=== PATIENT | female | born 1985 | race Two or more races ===

== ENCOUNTER 2016-11-24 17:50 | Inpatient (IN) | payer OTHER ==
[2016-11-24] MEDS: ELECTROLYTE-148 SOLN 1,000 ML IV SCH ×2 (18:35→23:40)
[2016-11-24 18:43] VITALS: BMI 25.5
[2016-11-24] MEDS ORDERED: TUBERCULIN PPD 5 TU/0.1ML SYRINGE (IN PATIENT USE ONLY) ID ONE (19:15)
[2016-11-24 19:46] LABS: BASOPHIL 0.2 % (0-2.0); EOSINOPHIL 0.4 % (0-4.5); MCH 29.3 pg (25.7-33.7); MCHC 34.4 g/dl (32.0-36.0); MEAN CELL VOLUME 85.3 fl (80-96); MEAN PLT VOLUME 7.9 fl (7.5-11.1); NEUTROPHILS 76.9 % (42.8-82.8); PLATELET COUNT 322 K/MM3 (134-434); WHITE BLOOD COUNT 9.9 K/mm3 (4.0-10.0)
[2016-11-24 19:56] LABS: INR 1.01 (0.82-1.09); PROTHROMBIN TIME (PATIENT) 11.4 SEC (9.98-11.88)
[2016-11-24 19:59] LABS: ACTIVATED PTT 27.4 SECONDS (26.9-34.4)
[2016-11-24 20:08] LABS: ANION GAP 9 (8-16); CALCIUM 7.8 mg/dL (8.5-10.1); CO2 23 mmol/L (21-32); CREATININE 0.6 mg/dL (0.55-1.02); GLUCOSE,RANDOM 84 mg/dL (74-106)
[2016-11-24 20:27] LABS: HIV 1 & 2 AB NEGATIVE; HIV 1 AGp24 NEGATIVE
[2016-11-24] MEDS ORDERED: OXYTOCIN 15 UNITS/ LR 250 ML 250 ML IVPB SCH ×2 (21:30)
[2016-11-24] MEDS ORDERED: DEXTROSE 5%-LACTATED RINGERS 1,000 ML IV SCH (21:30)
--- NOTE | 2016-11-24 21:30 | HP ---
Past Medical History - Primary Care Physician PCP:: Sherwin Warner - Admission Chief Complaint: 31yo P1 with at EGA 39w2d wks admitted with PROM History of Present Illness: Leaking amniotic fluid since 5:30pm. Occasional very mild ctx's. 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: Alzheimer's, CVA, Dementia, Migraine, Multiple Sclerosis, Peripheral Neuropathy, Parkinson's, Seizure, Syncope, TIA, Vertigo, Other Cardiovascular: No: AFIB, Aneurysm, Aortic Insufficiency, Aortic Stenosis, CAD, CHF, Deep Vein Thrombosis, HTN, Hyperlipdemia, MD, Mitral Insufficiency, Mitral Stenosis, Murmur, Pulmonary Hypertension, Other Pulmonary: No: Asthma, Bronchitis, Cancer, COPD, O2 Dependent, Pneumonia, Previously Intubated, Pulmonary Embolus, Pulmonary Fibrosis, Sleep Apnea, Other Gastrointestinal: No: Ascites, Cancer, Constipation, Crohn's Disease, Diverticulitis, Diverticulosis, Esophageal Varices, Gastritis, GERD, GI Bleed, Hemorrhoids, Hiatal Hernia, Inflamatory Bowel Disease, Irritable Bowel Disease, Pancreatitis, Peptic Ulcer Disease, Ulcerative Colitis, Other Hepatobiliary: No: Cirrhosis, Cholelithiasis, Cholecystitis, Choledocholithiasis , Hepatitis A, Hepatitis B, Hepatitis C, Other Renal/: No: Renal Failure, Renal Inusuff, BPH, Cancer, Hematuria, Hemodialysis , Neurogenic Bladder, Renal Calculi, UTI, Other ...: 2 ...Para: 1 (VAVD, vaginal/perineal lacerations, difficult delivery, as per pt and ) ...Term: 1 ...: 0 ...Spon : 0 ...Induced : 0 ...Multiple Gestation: 0 ...LMP: 02/23/16 ... Weeks Gestation by Dates: 39.2 ...EDC by Dates: 11/29/16 ...EDC by Sono: 11/29/16 Heme/Onc: Yes: Anemia Infectious Disease: No: AIDS, C-Diff, Herpes Zoster, HIV, MRSA, STD's, Tuberculosis, VREF, Other Psych: No: Addictions, Anxiety, Bipolar, Depression, Panic, Psychosis, Schizophrenia, Other Musculoskeletal: No: Bursitis, Chronic low back pain, Hemiparesis, Hemiplegia, Osteoarthritis, Paraplegia, Other Rheumatology: No: Fibromyalgia, Gout, Lupus, Rheumatoid Arthritis, Sarcoidosis, Vasculitis, Other ENT: No: Allergic Rhinitis, Sinusitis, Other Endocrine: No: Pine's Disease, Andrea's Disease, Diabetes Insipidus, Diabetes Mellitus, Hyperparathyroidism, Hyperthyroidism, Hypothyroidism, Osteopenia, SIADH, Other Dermatology: No: Basal Cell, Cellulitis, Eczema, Melanoma, Psoriasis, Squamous Cell, Other - Past Surgical History Past Surgical History: Yes: None Hx Myomectomy: No Hx Transabdominal Cerclage: No - Smoking History Smoking history: Never smoked Have you smoked in the past 12 months: No - Alcohol/Substance Use Hx Alcohol Use: No History of Substance Use: reports: None - Social History Usual Living Arrangement: Yes: With Spouse, With Child ADL: Independent History of Recent Travel: No Home Medications - Allergies Allergies/Adverse Reactions: Allergies Allergy/AdvReac Type Severity Reaction Status Date / Time No Known Allergies Allergy Verified 11/24/16 18:52 - Home Medications Home Medications: Ambulatory Orders Vit/Iron Fumarate/FA [ Tablet] 1 tab PO DAILY 11/24/16 Family Disease History - Family Disease History Family Disease History: Heart Disease: Father, CA: Mother, Respiratory: Father Review of Systems - Review of Systems Constitutional: reports: No Symptoms Eyes: reports: No Symptoms HENT: reports: No Symptoms Neck: reports: No Symptoms Cardiovascular: reports: No Symptoms Respiratory: reports: No Symptoms Gastrointestinal: reports: No Symptoms Genitourinary: reports: Other (leaking clear fluid) Breasts: reports: No Symptoms Reported Musculoskeletal: reports: No Symptoms Integumentary: reports: No Symptoms Neurological: reports: No Symptoms Endocrine: reports: No Symptoms Hematology/Lymphatic: reports: No Symptoms Psychiatric: reports: No Symptoms Pain Intensity: 0 Physical Exam - Maternity Vital Signs: Vital Signs Temperature 98.3 F 11/24/16 21:00 Pulse Rate 84 11/24/16 21:00 Respiratory Rate 20 11/24/16 21:00 Blood Pressure 96/46 11/24/16 21:00 O2 Sat by Pulse Oximetry (%) Constitutional: Yes: Well Nourished, No Distress, Calm Eyes: Yes: WNL, Conjunctiva Clear HENT: Yes: WNL, Atraumatic, Normocephalic Neck: Yes: WNL, Supple, Trachea Midline Cardiovascular: Yes: WNL, Regular Rate and Rhythm Lungs: Clear to auscultation, Normal air movement Breast(s): Yes: WNL - Abdominal Exam/OB Fundal Height: 38 Number of Fetuses: Single Presentation: Vertex Contractions: Yes Regularity: Irritability Intensity: Unaware Monitor Mode: External Heart Rate (range): 140 Heart Rate Location: Midline Accelerations: Uniform Decelerations: None - Vaginal Exam/OB Vaginal Bleediing: No Speculum Exam: No Dilatation (cm): 1 Effacement (%): 20 Amniotic Membrane Status: Leaking Nitrazine Test: Positive Amniotic Fluid: Yes: Clear Presentation: Vertex/Position Station: -3 - Physical Exam Musculoskeletal: Yes: WNL Extremities: Yes: WNL Edema: No Integumentary: Yes: WNL Deep Tendon Reflex Grade: Normal +2 ...Motor Strength: WNL Psychiatric: Yes: WNL, Alert, Oriented - Labs Lab Results: CBC, BMP 11/24/16 19:10 11/24/16 19:10 Hemorrhage Risk Assessment - Risk Factors Medium Risk Factors: Yes: None High Risk Factors: Yes: None Risk Score: 1 Risk Level: Medium Risk Imaging - Results Ultrasound: Report Reviewed Assessment/Plan 31yo P1 with at EGA 39w2d wks admitted with PROM. Fetus with Category I tracing. We had land discussion re: risks, benefits, and alternatives of labor induction. I explained the options of expectant management awaiting spontaneous labor, induction of labor, and elective section. The risks of uterine tachysystole, distress, uterine rupture, need for emergency C/S , hemorrhage, infection, scarring, etc. were discussed. We also discussed the risks of meconium aspiration, shoulder dystocia, and anesthesia options. The pt prefers to proceed with labor indx. She declined Cervidil for cervical ripening and prefers pitocin becaue it potentially requires fewer vaginal exams w/o anesthesia.
[2016-11-24] MEDS ORDERED: BUTORPHANOL TARTRATE 1 MG/ML VIAL IVPB ONE (22:15)
[2016-11-24] MEDS ORDERED: PROMETHAZINE HCL 25 MG/1 ML VIAL IVPB ONE (22:15)
[2016-11-25] MEDS ORDERED: FENTANYL/BUPIVACAINE/NS/PF - PCEA - 50 ML DISP.SYRIN EP SCH (00:30)
[2016-11-25 04:44] LABS: ARTERIAL BLD GAS O2 SATURATION 47.1 % (90-98.9); ARTERIAL BLOOD GAS BASE EXCESS -4.5 meq/l (-2-2); ARTERIAL BLOOD GAS HCO3 21.2 meq/L (22-26); ARTERIAL BLOOD GAS PO2 23.2 mmHg (80-100); ARTERIAL BLOOD GAS pH 7.31 (7.35-7.45)
[2016-11-25 04:46] LABS: VENOUS PH 7.35 (7.32-7.42)
[2016-11-25 04:47] LABS: VENOUS BLOOD GAS HCO3 20.4 meq/L (19-25)
[2016-11-25] MEDS ORDERED: ACETAMINOPHEN 325 MG TABLET (FP) PO PRN (08:27)
[2016-11-25] MEDS ORDERED: METHYLERGONOVINE MALEATE 0.2 MG/1 ML AMP IM PRN (08:27)
[2016-11-25] MEDS ORDERED: BENZOCAINE 28 GM HEMORRHOIDAL OINTMENT TP PRN (08:27)
[2016-11-25] MEDS ORDERED: WITCH HAZEL 50% (TUCKS) 40 PAD/JAR PAD TP PRN (08:27)
[2016-11-25] MEDS ORDERED: IBUPROFEN 600 MG TABLET (FP) PO PRN (08:27)
[2016-11-25] MEDS ORDERED: oxyCODONE HCL 5 MG TABLET PO PRN (08:27)
[2016-11-25] MEDS ORDERED: BENZOCAINE 20% 57 GM BOTTLE TP PRN (08:27)
[2016-11-25] MEDS ORDERED: BISACODYL 10 MG SUPP.RECT RC PRN (08:27)
--- NOTE | 2016-11-25 08:27 | PN ---
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 The internal anal sphincter was identified and closed with continuous 2-0 Vicryl sutures. Allis clamps were placed on each end of the external anal sphincter. The external anal sphincter was repaired with overlapping technique using 2-0 Vicryl sutire. The vaginal mucosa was repaired including rectovaginal fascia using 2-0 chromic suture. The perineal skin was closed. Rectal exam was then again performed after repair and good rectal tone was noted.
[2016-11-25] MEDS ORDERED: D5W-LR W/ 20 UNITS OXYTOCIN 1,000 ML IV SCH (08:30)
[2016-11-25] MEDS: DOCUSATE SODIUM 100 MG CAPSULE (FP) PO PRN ×2 (10:07→21:52)
[2016-11-25] MEDS: CEFAZOLIN 1 GM in DEXTROSE 5%-WATER - 50 ML IVPB SCH ×2 (11:13→19:10)
[2016-11-25] MEDS ORDERED: OXYTOCIN 20 UNITS in 0.9% NS 1,000 ML IV SCH (11:30)
[2016-11-26] MEDS: CEFAZOLIN 1 GM in DEXTROSE 5%-WATER - 50 ML IVPB SCH (01:32)
--- NOTE | 2016-11-26 07:04 | PN ---
Post Progress Note - Subjective Subjective: Patient without acute complaints. Reports tolerating oral intake without nausea or vomiting. Ambulating without dizziness. Denies fevers or chills. Pain well controlled with oral pain medication. without difficulty. Passing flatus. Post Day: 1 Type of Delivery: Vital Signs: Vital Signs Temperature 97.7 F 11/26/16 05:24 Pulse Rate 88 11/26/16 05:24 Respiratory Rate 20 11/26/16 05:24 Blood Pressure 108/69 11/26/16 05:24 O2 Sat by Pulse Oximetry (%) 100 11/25/16 05:35 Uterus: Yes: Fundus Firm, Fundus below umbilicus Abdomen/GI: Yes: Abdomen soft, Passing flatus, Tolerating PO. No: Tender Lochia: Yes: Serosa Lochia, amount: Small Perineum: Yes: Laceration Activity: Ambulating - Labs Labs: CBC WBC 9.9 K/mm3 (4.0-10.0) 11/24/16 19:10 RBC 3.97 M/mm3 (3.60-5.2) 11/24/16 19:10 Hgb 11.6 GM/dL (10.7-15.3) 11/24/16 19:10 Hct 33.8 % (32.4-45.2) 11/24/16 19:10 MCV 85.3 fl (80-96) 11/24/16 19:10 MCH 29.3 pg (25.7-33.7) 11/24/16 19:10 MCHC 34.4 g/dl (32.0-36.0) 11/24/16 19:10 RDW 17.0 % (11.6-15.6) H 11/24/16 19:10 Plt Count 322 K/MM3 (134-434) 11/24/16 19:10 MPV 7.9 fl (7.5-11.1) 11/24/16 19:10 Neutrophils % 76.9 % (42.8-82.8) 11/24/16 19:10 Lymphocytes % 13.2 % (8-40) 11/24/16 19:10 Monocytes % 9.3 % (3.8-10.2) 11/24/16 19:10 Eosinophils % 0.4 % (0-4.5) 11/24/16 19:10 Basophils % 0.2 % (0-2.0) 11/24/16 19:10 Assessment/Plan 31 yo PPD # 1 s/p , afebrile, vital signs stable, s/p 4th degree laceration, doing well 1. Continue routine postpartumcare. 2. Follow up AM CBC 3. Rh positive status, no rhogam indicated. 4. Encourage ambulation 5. Continue oral pain medication 6. s/p 4th degree laceration - continue colace, sitz baths, low residue diet 7. Anticipate discharge home day #2
[2016-11-26 08:55] LABS: BASOPHIL 0.3 % (0-2.0); EOSINOPHIL 0.5 % (0-4.5); MCH 28.2 pg (25.7-33.7); MCHC 33.2 g/dl (32.0-36.0); MEAN CELL VOLUME 85.1 fl (80-96); MEAN PLT VOLUME 7.3 fl (7.5-11.1); NEUTROPHILS 80.6 % (42.8-82.8); PLATELET COUNT 289 K/MM3 (134-434); RDW 17.1 % (11.6-15.6); WHITE BLOOD COUNT 14.4 K/mm3 (4.0-10.0)
[2016-11-26] MEDS: DOCUSATE SODIUM 100 MG CAPSULE (FP) PO PRN (09:55)
[2016-11-26] MEDS ORDERED: SENNOSIDES/DOCUSATE COMBO (SENNA PLUS) TABLET (UD) PO PRN (22:00)
--- NOTE | 2016-11-27 08:30 | DS ---
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 Signs: Vital Signs Temperature 97.1 F L 11/26/16 21:35 Pulse Rate 89 11/26/16 21:35 Respiratory Rate 20 11/26/16 21:35 Blood Pressure 107/59 11/26/16 21:35 O2 Sat by Pulse Oximetry (%) 100 11/25/16 05:35 Constitutional: Yes: Well Nourished, No Distress, Calm Eyes: Yes: WNL, Conjunctiva Clear, EOM Intact HENT: Yes: WNL, Atraumatic, Normocephalic Neck: Yes: WNL, Supple, Trachea Midline Cardiovascular: Yes: WNL, Regular Rate and Rhythm Respiratory: Yes: WNL, Regular, CTA Bilaterally Gastrointestinal: Yes: WNL ...Rectal Exam: Yes: WNL Renal/: Yes: WNL External Genitalia: Yes: Normal ....Post : Yes: Uterus firm, Uterus non-tender, Slight lochia rubra Breast(s): Yes: WNL Musculoskeletal: Yes: WNL Extremities: Yes: WNL Edema: No Integumentary: Yes: WNL Neurological: Yes: WNL, Alert, Oriented ...Motor Strength: WNL Psychiatric: Yes: WNL, Alert, Oriented Labs: CBC, BMP 11/26/16 07:45 11/24/16 19:10 Delivery - Delivery Vaginal Delivery: No Problems, Spontaneous Type of Anesthesia: Local, Epidural Episiotomy/Laceration: Vaginal Extension/lac, 4th Degree EBL (cc): 300 Delivery, Single - Stages of Labor Date 1st Stage Initiatied: 11/24/16 Time 1st Stage Initiated: 22:00 Date 2nd Stage Initiated: 11/25/16 Time 2nd Stage Initiated: 00:30 Date of Delivery: 11/25/16 Time of Delivery: 04:23 Time Placenta Delivered: 04:30 Placenta: Yes: Spontaneous, Normal Configuration - 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: No Gender: Female Weight: 7 lb 11 oz Position: OP Total Hours ROM (Hrs/Mins): 11hrs 15min - 1 Minute Total Score: 9 5 Minutes Total Score: 9 - [place] Feeding Plan Initial Plan: Exclusive throughout hospitalization Discharge Summary Reason For Visit: LABOR Procedures: Principal: Hospital Course: uneventful Condition: Good - Instructions Diet, Activity, Other Instructions: low residual diet, colace ,sitz bath Referrals: Sherwin Warner MD [Staff Physician] - Disposition: HOME - Home Medications Comprehensive Discharge Medication List: Ambulatory Orders Vit/Iron Fumarate/FA [ Tablet] 1 tab PO DAILY 11/24/16 Ibuprofen [Motrin -] 600 mg PO QID #28 tablet 11/26/16
--- NOTE | 2016-11-27 08:33 | PN ---
Progress Note (short form) - Note Progress Note: ppd 2 , doing well , ambulating , voids ok CBC, BMP 11/26/16 07:45 11/24/16 19:10 Last Vital Signs Temp Pulse Resp BP Pulse Ox 97.1 F L 89 20 107/59 100 11/26/16 21:35 11/26/16 21:35 11/26/16 21:35 11/26/16 21:35 11/25/16 05:35 abdomen soft, ,uterus firm, non tender lochia mild perineum clean , healing plan d/c home, instruction given, follow up office 4 weeks
[2016-11-27 10:17] VITALS: BP 106/64; PULSE 84; TEMP 98.1
== END 2016-11-27 11:30 | disposition home or self-care (01) ==
LOC: JDEL 17:50 → JLDR 18:15 → J3W 11-25 06:00
PROVIDERS: ADMIT Obstetrics & Gynecology; ATTEND Obstetrics & Gynecology
DX: O60.00 Preterm labor without delivery, unspecified trimester
CPT/HCPCS: 36415; 36600; 59409; 80048; 82803; 85025; 85610; 85730; 86593; 86850; 86900; 86901; 87389

== ENCOUNTER 2020-03-18 04:45 | Day surgery (SDC) | payer OTHER ==
[2020-03-14 15:04] VITALS: BMI 21.9
[2020-03-18] MEDS ORDERED: MIDAZOLAM HCL 2 MG/2 ML SINGLE DOSE VIAL ONE (10:52)
[2020-03-18] MEDS ORDERED: PROPOFOL 20 ML ONE (10:52)
[2020-03-18] MEDS ORDERED: ceFAZolin SODIUM 1 GM VIAL IVPB ONE (11:25)
[2020-03-18] MEDS ORDERED: LIDOCAINE 1%/EPI 1:100000 (50 ML MULTI DOSE VIAL) ONE (11:29)
[2020-03-18] MEDS ORDERED: LIDOCAINE 1%/EPI 1:100000 (50 ML MULTI DOSE VIAL) NR ONE (11:30)
[2020-03-18] MEDS ORDERED: KETOROLAC TROMETHAMINE 30 MG/1 ML VIAL ONE (11:51)
[2020-03-18] MEDS ORDERED: ceFAZolin SODIUM 1 GM VIAL ONE (11:51)
[2020-03-18] MEDS ORDERED: DEXAMETHASONE SOD PHOSPHATE 4 MG/1 ML VIAL ONE (11:51)
[2020-03-18] MEDS ORDERED: oxyCODONE HCL 5 MG TABLET PO PRN (12:11)
[2020-03-18] MEDS ORDERED: ONDANSETRON 4 MG/2 ML VIAL IVPUSH PRN (12:11)
[2020-03-18] MEDS ORDERED: PROMETHAZINE HCL 25 MG/1 ML VIAL IVPB PRN (12:11)
[2020-03-18] MEDS ORDERED: LACTATED RINGERS SOLUTION 1,000 ML IV SCH (12:15)
[2020-03-18 13:58] VITALS: BP 93/51; PULSE 86; TEMP 97.8
== END 2020-03-18 14:56 | disposition home or self-care (01) ==
LOC: JASU-SURG 04:45
PROVIDERS: ATTEND Obstetrics & Gynecology
PROC: 0UBC7ZX Excision of Cervix, Via Natural or Artificial Opening, Diagnostic (ICD-10-PCS; principal; 2020-03-18 10:30)
DX: N87.0 Mild cervical dysplasia (principal)
CPT/HCPCS: 84703; 88305-TC; 88307-TC; 94760

== ENCOUNTER → 2020-06-05 | Day surgery (SDC) | payer OTHER | END | disposition home or self-care (01) | LOC: JMAMMO-SUR 12:30 | PROVIDERS: ATTEND Obstetrics & Gynecology | PROC: 0H9U3ZX Drainage of Left Breast, Percutaneous Approach, Diagnostic (ICD-10-PCS; principal; 2020-06-05) | DX: N60.12 Diffuse cystic mastopathy of left breast (principal); N60.82 Other benign mammary dysplasias of left breast | CPT/HCPCS: 19083; 77065-TC; 87899; 88305-TC; A4648 ==